=== PATIENT | female | born 1970 | race Hispanic/Latino ===

== ENCOUNTER 2018-01-10 07:47 | Emergency (ER) | payer BC | END 2018-01-10 08:46 | disposition home or self-care (01) | LOC: EDH 07:47 | DX: S46.001A Unspecified injury of muscle(s) and tendon(s) of the rotator cuff of right shoulder, initial encounter (principal); M24.211 Disorder of ligament, right shoulder; Z90.710 Acquired absence of both cervix and uterus; X58.XXXA Exposure to other specified factors, initial encounter; Y93.89 Activity, other specified; Y92.89 Other specified places as the place of occurrence of the external cause; Y99.8 Other external cause status | CPT/HCPCS: 73030 ==

== ENCOUNTER → 2018-04-10 | Outpatient (CLI) | payer BC | END | disposition home or self-care (01) | LOC: RAH 08:43 | PROVIDERS: ATTEND Orthopaedic Surgery | DX: M47.812 Spondylosis without myelopathy or radiculopathy, cervical region (principal); M50.222 Other cervical disc displacement at C5-C6 level; M48.02 Spinal stenosis, cervical region; M50.30 Other cervical disc degeneration, unspecified cervical region | CPT/HCPCS: 72141 ==

== ENCOUNTER 2018-12-16 09:45 | Emergency (ER) | payer BC ==
[2018-12-16] MEDS ORDERED: DiphenhydrAMINE HCL 50 MG/ML VIAL ONE (10:42)
[2018-12-16] MEDS ORDERED: FAMOTIDINE/PF 20 MG/2 ML VIAL IV ONE (10:43)
[2018-12-16] MEDS ORDERED: ONDANSETRON HCL 4 MG/2 ML VIAL ONE (10:43)
[2018-12-16] MEDS ORDERED: SODIUM CHLORIDE 0.9% 1000ML 1,000 ML IV ONE (10:44)
[2018-12-16 11:23] LABS: BASOPHILS % (AUTO) 1.3 % (0.0-5.0); EOSINOPHILS % (AUTO) 1.1 % (0.0-8.0); HEMATOCRIT 46.2 % (36-48); LYMPHOCYTES % (AUTO) 16.6 % (21.0-51.0); MEAN CORPUSCULAR HEMOGLOBIN 31.1 pg (27.0-33.0); MEAN CORPUSCULAR VOLUME 91.2 fL (79-99); MONOCYTES % (AUTO) 5.6 % (3.0-13.0); NEUTROPHILS % (AUTO) 75.4 % (40.0-77.0); PLATELET COUNT (AUTO) 278 K/uL (130-400); RED BLOOD CELL COUNT(AUTO) 5.06 MIL/uL (4.00-5.50); RED CELL DISTRIBUTION WIDTH 12.8 % (11.0-15.5); WHITE BLOOD COUNT (AUTO) 12.9 K/uL (4.8-10.8)
[2018-12-16 11:34] LABS: CREATININE 0.7 mg/dL (0.5-1.5); POTASSIUM 3.6 mmol/L (3.5-5.1)
[2018-12-16 11:42] LABS: ALBUMIN 4.1 g/dL (3.5-5.0); BILIRUBIN,DIRECT 0.1 mg/dL (0.0-0.3); BILIRUBIN,TOTAL 0.5 mg/dL (0.2-1.0); TOTAL PROTEIN, SERUM 8.5 g/dL (6.0-8.3)
[2018-12-16] MEDS ORDERED: NITROGLYCERIN 1GM/1 INCH PACKET TD ONE (13:05)
[2018-12-16 14:13] LABS: APPEARANCE,URINE Clear (CLEAR); BILIRUBIN,URINE Negative (NEGATIVE); COLOR,URINE Yellow (YELLOW); GLUCOSE, URINE (UA) Negative (NEGATIVE); KETONES,URINE Negative (NEGATIVE); LEUKOCYTE ESTERASE ,URINE Negative (NEGATIVE); NITRATE,URINE Negative (NEGATIVE); OCCULT BLOOD,URINE Negative (NEGATIVE); PROTEIN,URINE Negative (NEGATIVE); UROBILINOGEN,URINE 0.2 mg/dL (0.2-1.0)
[2018-12-16 14:14] LABS: HCG,QUAL RESULT NEGATIVE (NEGATIVE)
[2018-12-16 14:20] LABS: AMPHET/METH SCREEN,URINE NEGATIVE (NEGATIVE); BARBITURATE SCREEN, URINE NEGATIVE (NEGATIVE); BENZODIAZEPINES SCREEN,URINE NEGATIVE (NEGATIVE); CANNABINOID SCREEN,URINE NEGATIVE (NEGATIVE); COCAINE SCREEN,URINE POSITIVE (NEGATIVE); OPIATE SCREEN,URINE NEGATIVE (NEGATIVE); PHENCYCLIDINE SCREEN,URINE NEGATIVE (NEGATIVE)
== END 2018-12-16 15:02 | disposition home or self-care (01) ==
LOC: EDH 09:45
DX: F14.980 Cocaine use, unspecified with cocaine-induced anxiety disorder (principal); E86.0 Dehydration; R11.2 Nausea with vomiting, unspecified; Z72.89 Other problems related to lifestyle
CPT/HCPCS: 36415; 80053; 80076; 80305; 81003; 81025; 82550; 84484 ×2; 85025; 93005 ×2; 96361; 96374; 96375; 99285; J1200; J2405; J3490; J7030

== ENCOUNTER 2019-05-01 13:16 | Emergency (ER) | payer BC ==
[2019-05-01 13:46] LABS: BASOPHILS % (AUTO) 0.6 % (0.0-5.0); EOSINOPHILS % (AUTO) 2.9 % (0.0-8.0); HEMATOCRIT 48.7 % (36-48); LYMPHOCYTES % (AUTO) 28.5 % (21.0-51.0); MEAN CORPUSCULAR HEMOGLOBIN 30.1 pg (27.0-33.0); MEAN CORPUSCULAR HGB CONC 32.9 g/dL (32.0-36.0); MEAN CORPUSCULAR VOLUME 91.7 fL (79-99); NEUTROPHILS % (AUTO) 62.6 % (40.0-77.0); PLATELET COUNT (AUTO) 267 K/uL (130-400); RED BLOOD CELL COUNT(AUTO) 5.31 MIL/uL (4.00-5.50); RED CELL DISTRIBUTION WIDTH 11.9 % (11.0-15.5); WHITE BLOOD COUNT (AUTO) 7.9 K/uL (4.8-10.8)
[2019-05-01 14:00] LABS: INR 0.99 (0.85-1.15); PARTIAL THROMBOPLASTIN TIME 27.4 SEC (26.3-35.5); PROTHROMBIN TIME 10.4 SEC (9.6-11.6)
[2019-05-01 14:15] LABS: ALBUMIN 3.7 g/dL (3.5-5.0); BILIRUBIN,TOTAL 0.4 mg/dL (0.2-1.0); CREATININE 0.9 mg/dL (0.5-1.5); POTASSIUM 4.1 mmol/L (3.5-5.1); TOTAL PROTEIN, SERUM 8.2 g/dL (6.0-8.3)
[2019-05-01] MEDS ORDERED: ACETAMINOPHEN EXTRA STRENGTH 500 MG TABLET ONE (14:33)
[2019-05-01 16:00] LABS: BILIRUBIN,URINE Negative (NEGATIVE); COLOR,URINE Yellow (YELLOW); GLUCOSE, URINE (UA) Negative (NEGATIVE); KETONES,URINE Negative (NEGATIVE); LEUKOCYTE ESTERASE ,URINE Negative (NEGATIVE); NITRATE,URINE Negative (NEGATIVE); OCCULT BLOOD,URINE Negative (NEGATIVE); PROTEIN,URINE Negative (NEGATIVE)
[2019-05-01 16:05] LABS: APPEARANCE,URINE CLEAR (CLEAR)
[2019-05-01 16:06] LABS: AMPHET/METH SCREEN,URINE NEGATIVE (NEGATIVE); BARBITURATE SCREEN, URINE NEGATIVE (NEGATIVE); BENZODIAZEPINES SCREEN,URINE NEGATIVE (NEGATIVE); CANNABINOID SCREEN,URINE NEGATIVE (NEGATIVE); COCAINE SCREEN,URINE NEGATIVE (NEGATIVE); OPIATE SCREEN,URINE NEGATIVE (NEGATIVE); PHENCYCLIDINE SCREEN,URINE NEGATIVE (NEGATIVE)
[2019-05-01] MEDS ORDERED: KETOROLAC TROMETHAMINE 30MG/ML ONE (16:59)
[2019-05-01] MEDS ORDERED: DIPHENHYDRAMINE HCL 25 MG CAPSULE ONE (17:00)
== END 2019-05-01 17:43 | disposition home or self-care (01) ==
LOC: EDH 13:16
DX: H66.91 Otitis media, unspecified, right ear (principal); R42 Dizziness and giddiness; R51 Headache; F41.9 Anxiety disorder, unspecified; Z72.0 Tobacco use
CPT/HCPCS: 36415; 70450; 80053; 80305; 81003; 82550; 84484; 85025; 85610; 85730; 93005; 96372; 99285; J1885; Q0163

== ENCOUNTER → 2019-05-05 | Outpatient (CLI) | payer BC ==
[~2019-05-05] MED LIST: GADODIAMIDE 10 MMOL/20 ML VIAL IV ONE
== END | disposition home or self-care (01) ==
LOC: RAH 07:45
PROVIDERS: ATTEND Optometrist
DX: H53.2 Diplopia (principal)
CPT/HCPCS: 70553; A9579

== ENCOUNTER 2020-04-26 15:55 | Emergency (ER) | payer BC, OTHER ==
[2020-04-26] MEDS ORDERED: ACETAMINOPHEN EXTRA STRENGTH 500 MG TABLET ONE (16:23)
== END 2020-04-26 16:50 | disposition home or self-care (01) ==
LOC: EDH 15:55
DX: S29.012A Strain of muscle and tendon of back wall of thorax, initial encounter (principal); S40.012A Contusion of left shoulder, initial encounter; F41.9 Anxiety disorder, unspecified; Z90.710 Acquired absence of both cervix and uterus; V49.49XA Driver injured in collision with other motor vehicles in traffic accident, initial encounter; Y93.89 Activity, other specified; Y92.89 Other specified places as the place of occurrence of the external cause; Y99.8 Other external cause status
CPT/HCPCS: 72072; 73030

== ENCOUNTER 2020-07-28 07:34 | Emergency (ER) | payer BC, OTHER ==
[2020-07-28 08:08] LABS: BASOPHILS % (AUTO) 0.5 % (0.0-5.0); EOSINOPHILS % (AUTO) 2.7 % (0.0-8.0); HEMATOCRIT 44.7 % (36-48); LYMPHOCYTES % (AUTO) 16.9 % (21.0-51.0); MEAN CORPUSCULAR HEMOGLOBIN 30.8 pg (27.0-33.0); MEAN CORPUSCULAR HGB CONC 33.6 g/dL (32.0-36.0); MEAN CORPUSCULAR VOLUME 91.8 fL (79-99); MONOCYTES % (AUTO) 9.2 % (3.0-13.0); PLATELET COUNT (AUTO) 227 K/uL (130-400); RED BLOOD CELL COUNT(AUTO) 4.87 MIL/uL (4.00-5.50); RED CELL DISTRIBUTION WIDTH 12.2 % (11.0-15.5); WHITE BLOOD COUNT (AUTO) 12.4 K/uL (4.8-10.8)
[2020-07-28 08:13] LABS: APPEARANCE,URINE Cloudy (CLEAR); BILIRUBIN,URINE Negative (NEGATIVE); COLOR,URINE Yellow (YELLOW); GLUCOSE, URINE (UA) TRACE mg/dL (NEGATIVE); KETONES,URINE Negative (NEGATIVE); LEUKOCYTE ESTERASE ,URINE Negative (NEGATIVE); NITRATE,URINE Negative (NEGATIVE); OCCULT BLOOD,URINE Large (NEGATIVE); PROTEIN,URINE POS 1+ mg/dL (NEGATIVE)
[2020-07-28 08:23] LABS: ALBUMIN 3.7 g/dL (3.5-5.0); BILIRUBIN,TOTAL 0.7 mg/dL (0.2-1.0); CREATININE 1.1 mg/dL (0.5-1.5); POTASSIUM 4.4 mmol/L (3.5-5.1)
[2020-07-28 08:38] LABS: BACTERIA,URINE Few /HPF (None Seen); MUCUS,URINE Few LPF (None Seen); RBC,URINE 26-50 /HPF (0-1); SQUAMOUS EPITHELIAL CELL,UR Rare /HPF (0-2); WBC,URINE 0-1 /HPF (0-1)
[2020-07-28] MEDS ORDERED: CEFTRIAXONE SODIUM 1 GM ONE (11:13)
[2020-07-28] MEDS ORDERED: SODIUM CHLORIDE 0.9% 50 ML IV ONE (11:14)
== END 2020-07-28 13:10 | disposition home or self-care (01) ==
LOC: EDH 07:34
DX: N39.0 Urinary tract infection, site not specified (principal); N28.1 Cyst of kidney, acquired; E11.9 Type 2 diabetes mellitus without complications; E78.00 Pure hypercholesterolemia, unspecified; F41.9 Anxiety disorder, unspecified
CPT/HCPCS: 36415; 74176; 80053; 81001; 85025; 96365; 99284; J0696

== ENCOUNTER 2021-06-21 13:39 | Emergency (ER) | payer BC ==
[~2021-06-21] VITALS: Ht 162.6 cm; Wt 102.1 kg
[2021-06-21 14:09] LABS: BASOPHILS % (AUTO) 0.6 % (0.0-5.0); EOSINOPHILS % (AUTO) 3.3 % (0.0-8.0); HEMATOCRIT 43.4 % (36-48); LYMPHOCYTES % (AUTO) 33.2 % (21.0-51.0); MEAN CORPUSCULAR HEMOGLOBIN 30.5 pg (27.0-33.0); MEAN CORPUSCULAR HGB CONC 33.4 g/dL (32.0-36.0); MEAN CORPUSCULAR VOLUME 91.2 fL (79-99); MONOCYTES % (AUTO) 5.5 % (3.0-13.0); NEUTROPHILS % (AUTO) 56.9 % (40.0-77.0); PLATELET COUNT (AUTO) 236 K/uL (130-400); RED BLOOD CELL COUNT(AUTO) 4.76 MIL/uL (4.00-5.50); RED CELL DISTRIBUTION WIDTH 11.7 % (11.0-15.5); WHITE BLOOD COUNT (AUTO) 9.7 K/uL (4.8-10.8)
[2021-06-21 14:13] LABS: APPEARANCE,URINE Cloudy (CLEAR); BILIRUBIN,URINE Small (NEGATIVE); COLOR,URINE Dark Yellow (YELLOW); GLUCOSE, URINE (UA) 250 mg/dL (NEGATIVE); KETONES,URINE Trace mg/dL (NEGATIVE); LEUKOCYTE ESTERASE ,URINE Trace (NEGATIVE); NITRATE,URINE Negative (NEGATIVE); OCCULT BLOOD,URINE Negative (NEGATIVE); PROTEIN,URINE POS 1+ mg/dL (NEGATIVE)
[2021-06-21 14:28] LABS: ALBUMIN 3.6 g/dL (3.5-5.0); BILIRUBIN,TOTAL 0.5 mg/dL (0.2-1.0); TOTAL PROTEIN, SERUM 7.6 g/dL (6.0-8.3)
[2021-06-21 14:29] LABS: INR 1.05 (0.85-1.15); PROTHROMBIN TIME 11.4 SEC (9.6-11.6)
[2021-06-21 14:30] LABS: PARTIAL THROMBOPLASTIN TIME 26.2 SEC (26.3-35.5)
[2021-06-21] MEDS ORDERED: 0.9%NACL 1000ML 1,000 ML IV ONE (14:30)
[2021-06-21 14:52] LABS: BACTERIA,URINE Few /HPF (None Seen); MUCUS,URINE Moderate LPF (None Seen); SQUAMOUS EPITHELIAL CELL,UR Few /HPF (0-2)
[2021-06-21] MEDS ORDERED: ONDANSETRON 4MG INJ IVP ONE (15:00)
[2021-06-21] MEDS ORDERED: MECLIZINE HCL 25 MG TABLET PO ONE (15:00)
[2021-06-21] MEDS ORDERED: ONDA4TAB10 PO (15:59)
[2021-06-21] MEDS ORDERED: MECL-226 PO (15:59)
[2021-06-21] MEDS ORDERED: CEPH500B PO (15:59)
[2021-06-21 16:33] VITALS: BP 135/74
== END 2021-06-21 16:55 | disposition home or self-care (01) ==
LOC: EDH 13:39
DX: H81.10 Benign paroxysmal vertigo, unspecified ear (principal); N39.0 Urinary tract infection, site not specified; E11.9 Type 2 diabetes mellitus without complications; E78.00 Pure hypercholesterolemia, unspecified; Z98.890 Other specified postprocedural states
CPT/HCPCS: 36415; 70450; 80053; 81001; 85025; 85610; 85730; 96361; 96374; 99284; J2405; J7030

== ENCOUNTER 2023-02-04 03:48 | Emergency (ER) | payer BC ==
[~2023-02-04] VITALS: Ht 162.6 cm; Wt 97.5 kg
[~2023-02-04 03:48] MED LIST changes: +CEPH500B PO; -GADODIAMIDE 10 MMOL/20 ML VIAL IV ONE; +MECL-226 PO; +ONDA4TAB10 PO
[2023-02-04] MEDS ORDERED: MECL-262 PO (04:23)
[2023-02-04] MEDS ORDERED: HYDR-3421 PO (04:23)
[2023-02-04] MEDS ORDERED: HYDROXYZINE 25 MG TABLET PO ONE (04:30)
[2023-02-04 04:50] VITALS: BP 132/88; PULSE 82; RESP 17; O2SAT 99
== END 2023-02-04 04:55 | disposition home or self-care (01) ==
LOC: EDH 03:48
DX: F41.9 Anxiety disorder, unspecified (principal); H93.13 Tinnitus, bilateral; E11.9 Type 2 diabetes mellitus without complications; E78.00 Pure hypercholesterolemia, unspecified

== ENCOUNTER 2024-03-23 08:11 | Emergency (ER) | payer BC ==
[~2024-03-23] VITALS: Ht 162.6 cm; Wt 98.0 kg
[~2024-03-23 08:11] MED LIST changes: +HYDR-3421 PO; +MECL-262 PO; +ONDA-243 PO; -ONDA4TAB10 PO
[2024-03-23 08:20] VITALS: TEMP 97.2
--- NOTE | 2024-03-23 08:36 | ERN ---
ED Note History of Present Illness Stated Complaint: FALL Chief Complaint: Mechanical Fall Time Seen by MD: 08:20 Dictation: Patient comes in with complaint of mechanical fall. She has had difficulty with sciatica for the last several months or right ledg. She was at [facility] today. She got up and reports that her right leg lag behind that she fell onto her right side. He did not hit her head. No headache no neck pain. Not on anticoagulation. Patient is having pain in her right lower lumbar region and hip. She is able to ambulate although she tapered to right leg. Allergies: Coded Allergies: No Known Allergies (Unverified Allergy, Unknown, 12/16/18) Home Meds Active Scripts Hydroxyzine HCl (Hydroxyzine HCl) 25 Mg Tablet, 25 MG PO TIDP PRN for anxiety, #30 TAB Prov:TIM ELLIOTT MD 02/04/23 Meclizine HCl (Antivert) 25 Mg Tab.chew, 25 MG PO TIDP PRN for VERTIGO, #30 TAB.CHEW Prov:TMI ELLIOTT MD 02/04/23 Ondansetron (Ondansetron Odt) 4 Mg Tab.rapdis, 4 MG PO TID, #15 TAB Prov:FITTINGMARYP 06/21/21 Meclizine HCl (Meclizine HCl) 12.5 Mg Tablet, 25 MG PO TID, #15 TAB Prov:FITTINGMARYP 06/21/21 Cephalexin Monohydrate (Keflex) 500 Mg Cap, 500 MG PO QID for 7 Days, #28 CAP Prov:FITTINGMARYP 06/21/21 Past Medical History Past Medical History: Diabetes-Type II Additional Past Medical Hx: BELS PALSY (LEFT FACIAL DROOP) Surgical History: Hysterectomy, Family History: Negative Social History: Negative Review of System Dictation Ten systems reviewed and negative except as noted in HPI Initial Vital Sign VS Vital Signs Date Time Temp Pulse Resp B/P (MAP) Pulse Ox O2 Delivery O2 Flow Rate FiO2 03/23/24 08:16 97.2 89 18 151/105 97 Room Air 0 03/23/24 08:20 21 Physical Exam Dictation GEN: non toxic, NAD HEENT: atrumatic, PERRL, EOMI, conjunctivae normal NECK: Soft supple nontender Heart RRR, no murmurs Chest: No deformity Lungs: Lungs clear to auscultation Ab: Soft nondistended nontender Back: No midline step-offs. No gross deformity. No CVA tenderness : m/s: Moving all four extremities. No gross deformity patient reports some discomfort in the right lower lumbar region. Pelvis stable. Able to ambulate although favors right leg. No shortening of the leg. Able to flex and extend that the knee. Strength 5/5 bilaterally. Neuro: CN 2-12 intact. Moving all four extremities. Psych: Cooperative Results (Laboratory/Radiology) Laboratory/Radiology PROCEDURE: LUMB 2 3VW - LUMBAR SPINE 2-3VWS EXAM: LUMBAR SPINE 2-3VWS REASON: fall. COMPARISON: None. TECHNIQUE: 3 views of the lumbar spine were obtained. FINDINGS: There is normal appearance of the lumbar vertebral bodies. There is interspace narrowing at T12-L1. Remaining interspaces are preserved. Alignment is normal. There are no visible fractures. Soft tissues appear unremarkable. IMPRESSION: 1. Degenerative changes at T12-L1. 2. No acute finding, no fracture seen. DICTATED BY: JAMAAL THOMPSON MD DATE: 03/23/24937 ELECTRONICALLY SIGNED BY: JAMAAL THOMPSON MD DATE: 03/23/24940 PATIENT: ALBERTINA BARRIOS MR#: [id number] : 1970 SEX: F AGE: 53 LOCATION: [facility] ORDER 2 STATUS: [facility] REPORT#: [id number] SERVICE 0 REASON: fall ORDERING PHYSICIAN: ANDRY SOLIS MD PROCEDURE: HIP U 2V R - HIP UNILAT 2-3VW RIGHT Exam: AP pelvis and right hip 3 views Reason: Trauma. FINDINGS: There are normal-appearing bones of the pelvis. There are no visible fractures. Hip joint spaces are preserved. Proximal right femur appears normal, no evidence of femoral neck fracture. Soft tissues appear unremarkable as well. There is no evidence of foreign body. IMPRESSION: 1. Normal views of the pelvis and right hip. DICTATED BY: JAMAAL THOMPSON MD DATE: 03/23/24936 ELECTRONICALLY SIGNED BY: JAMAAL THOMPSON MD DATE: 03/23/24940 ED Course ED Course Orders Procedure Category Date Status Time Lumbar Spine 2-3vws RAD 03/23/24 Resulted 08:31 Hip Unilat 2-3vw Right RAD 03/23/24 Resulted 08:31 Ketorolac PHA 03/23/24 Complete Tromethamine 30mg/Ml 09:00 Current Medications Medications (Trade) Dose Ordered Sig/Jazmin Route PRN Reason Start Time Stop Time Status Last Admin Dose Admin Ketorolac Tromethamine (toRADol) 30 mg ONCE ONCE IM 03/23/24 09:00 03/23/24 09:01 DC 03/23/24 10:09 Vital Signs Date Time Temp Pulse Resp B/P (MAP) Pulse Ox O2 Delivery O2 Flow Rate FiO2 03/23/24 08:20 97.2 89 18 151/105 97 Room Air* 0 21 03/23/24 08:16 97.2 89 18 151/105 97 Room Air 0 Medical Decision Making MDM Patient had a muscular skeletal injury and mechanical fall. We will get x-rays of lumbar and hip and pelvis. X-rays unremarkable. Treat with ibuprofen and Flexeril. Follow up with primary care physician as needed. Lumbar strain and contusion fall. DX & DISP Disposition: Discharge Departure Impression: Primary Impression: Lumbar strain Additional Impression: Back contusion Condition: Stable Scripts Cyclobenzaprine HCl (Flexeril) 10 Mg Tab 1 TAB PO TID for muscle spasms for 10 Days, #30 TAB 0 Refills Prov: ANDRY SOLIS MD 03/23/24 Ibuprofen (Ibuprofen) 600 Mg Tablet 1 TAB PO TID for pain for 10 Days, #30 TAB 0 Refills with food Prov: ANDRY SOLIS MD 03/23/24 Additional Instructions: Ibuprofen 3 times a day for pain and inflammation Flexeril for muscle spasm. Do not drive if you takes this medication Referrals: ISMAEL MUSA MD (PCP) ANDRY SOLIS MD Mar 23, 2024 08:36
--- NOTE | 2024-03-23 09:41 | HMCIMG ---
EXAM: LUMBAR SPINE 2-3VWS REASON: fall. COMPARISON: None. TECHNIQUE: 3 views of the lumbar spine were obtained. FINDINGS: There is normal appearance of the lumbar vertebral bodies. There is interspace narrowing at T12-L1. Remaining interspaces are preserved. Alignment is normal. There are no visible fractures. Soft tissues appear unremarkable. IMPRESSION: 1. Degenerative changes at T12-L1. 2. No acute finding, no fracture seen.
--- NOTE | 2024-03-23 09:41 | HMCIMG ---
Exam: AP pelvis and right hip 3 views Reason: Trauma. FINDINGS: There are normal-appearing bones of the pelvis. There are no visible fractures. Hip joint spaces are preserved. Proximal right femur appears normal, no evidence of femoral neck fracture. Soft tissues appear unremarkable as well. There is no evidence of foreign body. IMPRESSION: 1. Normal views of the pelvis and right hip.
[2024-03-23] MEDS: ketOROlac 30MG VIAL (30MG/ML) IM ONE (10:09)
[2024-03-23] MEDS ORDERED: CYCL10TA16 PO (10:42)
[2024-03-23] MEDS ORDERED: IBUP-2070 PO (10:42)
[2024-03-23 10:48] VITALS: BP 142/97; PULSE 87; RESP 17; O2SAT 98
== END 2024-03-23 10:49 | disposition home or self-care (01) ==
LOC: EDH 08:11
DX: S39.012A Strain of muscle, fascia and tendon of lower back, initial encounter (principal); S30.0XXA Contusion of lower back and pelvis, initial encounter; E11.9 Type 2 diabetes mellitus without complications; Z90.710 Acquired absence of both cervix and uterus; W18.39XA Other fall on same level, initial encounter; Y93.89 Activity, other specified; Y92.89 Other specified places as the place of occurrence of the external cause; Y99.8 Other external cause status
CPT/HCPCS: 99284; 73502; 72100; 96372; J1885